=== PATIENT | female | born 1955 | race Caucasian/White ===

== ENCOUNTER → 2018-07-06 | Day surgery (SDC) | payer MEDICARE ==
[~2018-07-06] VITALS: Ht 165.1 cm; Wt 148.0 kg
[~2018-07-06] MED LIST: DIGOXIN; METOPROLOL; RIVAROXABAN; SPIR100T4 PO
[2018-07-06 10:49] VITALS: Ht 165.1 cm; Wt 148.0 kg
[2018-07-06 11:13] VITALS: BP 121/83; PULSE 100; RESP 18
== END | disposition home or self-care (01) ==
LOC: GIL 09:44
PROVIDERS: ATTEND Internal Medicine Gastroenterology
DX: R10.9 Unspecified abdominal pain (principal); Z53.8 Procedure and treatment not carried out for other reasons; I48.91 Unspecified atrial fibrillation

== ENCOUNTER 2018-07-20 08:22 | Day surgery (SDC) | payer MEDICARE ==
[~2018-07-20] VITALS: Ht 160 cm; Wt 67.3 kg
[2018-07-20 08:59] VITALS: Ht 160 cm; Wt 67.3 kg
[2018-07-20 09:06] VITALS: BP 128/82; PULSE 95; RESP 16
[2018-07-20 09:16] VITALS: BP 118/84; PULSE 97; RESP 20
--- NOTE | 2018-07-20 10:10 | GILP ---
DATE OF PROCEDURE: 07/20/2018 PROCEDURE PERFORMED: Removal of the G-tube. INDICATION: A 63-year-old female undergoing this procedure for the removal of the G-tube as per the , the patient is eating 100% and does not want G-tube. The risk of the procedure, related and unrelated complication all explained and informed consent was obtained. DESCRIPTION OF PROCEDURE: The patient was brought to the GI lab, placed on the gurney after obtainin g consent. As per the complete instruction, by traction, the G-tube was removed. The area was thoro ughly cleaned with normal saline. The patient tolerated the procedure very well. IMPRESSION: Successful removal of the G-tube. PLAN: Resume feeding through the mouth, cleaned the area with soap and water and if the fistula does not get closed they should contact my office. Dictated By: DEJON STARKEY/NTS Conf#: [id number] DID#: [id number] CC: DAYNA GOLDSTEIN MD; DEJON RESENDIZ MD;*EndCC*
== END 2018-07-20 09:53 | disposition home or self-care (01) ==
LOC: GIL 08:22
PROVIDERS: ATTEND Internal Medicine Gastroenterology
DX: Z43.1 Encounter for attention to gastrostomy (principal)
CPT/HCPCS: 99211

== ENCOUNTER 2018-11-16 07:29 | Inpatient (IN) | payer MEDICARE, BC ==
[~2018-11-16] VITALS: Ht 162.6 cm; Wt 58.0 kg
[~2018-11-16 07:29] MED LIST changes: +ATOR20TA38 PO; +LEVO500T48 PO; +METO-429 PO; +PANT40TA4 PO; +RIVA20TA5 PO; +SPIR25TA PO
[2018-11-16] MEDS ORDERED: morphine 4 MG/ML VIAL IV STA (07:45)
[2018-11-16] MEDS ORDERED: ONDANSETRON 4 MG INJ IV STA (07:45)
[2018-11-16] MEDS ORDERED: SODIUM CHLORIDE 0.9% 1L BAG IV* STA (07:45)
[2018-11-16] MEDS ORDERED: METOPROLOL 5 MG INJ IV ONE (08:00)
[2018-11-16] MEDS: CEFTRIAXONE 1 GM/50 ML (PMX) 50 ML IVPB ONE ×2 (08:08→08:40)
--- NOTE | 2018-11-16 09:58 | ERD ---
ER Documentation Chief Complaint Chief Complaint abdominal pain & vomitting since thursday & shaking HPI Patient is a 63-year-old female with coronary disease, stroke, hypertension, and atrial fibrillation who presents with vomiting and left-sided flank pain. She also has shortness of breath. Her symptoms started on Thursday night. She said the pain is been constant and sharp in nature. She has had sweats. She has had no treatment as of yet. Upon review of old medical record the patient had one previous visit to the ER in 2012. The patient's primary doctor is Dr. Colin. ROS All systems reviewed and are negative except as per history of present illness. Medications Home Meds Reported Medications Rivaroxaban* (Xarelto*) 20 Mg Tablet, 20 MG PO WITH DINNER, TAB 11/16/18 Metoprolol Tartrate* (Lopressor*) 50 Mg Tab, 50 MG PO BID, #60 TAB 11/16/18 Atorvastatin Calcium* (Atorvastatin Calcium*) 20 Mg Tablet, 20 MG PO QHS, #30 TA B 11/16/18 Spironolactone* (Aldactone*) 25 Mg Tablet, 25 MG PO DAILY, #30 TAB 11/16/18 Discontinued Reported Medications [Xarelto Daily] No Conflict Check 07/06/18 Spironolactone* (Spironolactone*) 100 Mg Tablet, 100 MG PO DAILY, TAB 07/06/18 [Metoprolol] No Conflict Check 07/06/18 [Digoxin] No Conflict Check 07/06/18 Allergies Allergies: Uncoded Allergies: CONTRAST (Allergy, Unknown, 07/06/18) PMhx/Soc History of Surgery: No Anesthesia Reaction: No Hx Neurological Disorder: Yes (STROKE) Hx Respiratory Disorders: Yes (HX OF COLLAPSED LUNG) Hx Cardiac Disorders: Yes (HTN, AFIB) Hx Psychiatric Problems: Yes (ANXIETY) Hx Miscellaneous Medical Probl: No Hx Alcohol Use: No Hx Substance Use: No Hx Tobacco Use: Yes Smoking Status: Former smoker FmHx Family History: No diabetes Physical Exam Vitals Vital Signs Date Temp Pulse Resp B/P (MAP) Pulse Ox O2 O2 Flow FiO2 Time Delivery Rate 11/16/18 104 20 137/105 97 Nasal 2.0 08:30 (116) Cannula 11/16/18 109 14 119/95 100 Nasal 2.0 08:21 (103) Cannula 11/16/18 Nasal 2 08:04 Cannula 11/16/18 97.5 77 18 149/101 99 07:30 (117) Physical Exam Const: Moderate distress Head: Atraumatic Eyes: Normal Conjunctiva ENT: Normal External Ears, Nose and Mouth. Neck: Full range of motion. No meningismus. Resp: Clear to auscultation bilaterally Cardio: Tachycardic rate with a regular rhythm Abd: Soft, non tender, non distended. Normal bowel sounds Skin: No petechiae or rashes Back: No midline or flank tenderness Ext: No cyanosis, or edema Neur: Awake and alert Psych: Normal Mood and Affect Result Diagram: 11/16/18 0750 11/16/18 0750 Results 24 hrs Laboratory Tests Test 11/16/18 07:50 11/16/18 08:01 11/16/18 08:37 White Blood Count 13.5 10^3/ul Red Blood Count 5.87 10^6/ul Hemoglobin 15.3 g/dl Hematocrit 48.7 % Mean Corpuscular Volume 83.0 fl Mean Corpuscular Hemoglobin 26.1 pg Mean Corpuscular 31.4 g/dl Hemoglobin Concent Red Cell Distribution Width 16.6 % Platelet Count 371 10^3/UL Mean Platelet Volume 11.1 fl Immature Granulocytes % 0.500 % Neutrophils % 81.3 % Lymphocytes % 14.8 % Monocytes % 3.0 % Eosinophils % 0.1 % Basophils % 0.3 % Nucleated Red Blood Cells % 0.0 /100WBC Immature Granulocytes # 0.070 10^3/ul Neutrophils # 11.0 10^3/ul Lymphocytes # 2.0 10^3/ul Monocytes # 0.4 10^3/ul Eosinophils # 0.0 10^3/ul Basophils # 0.0 10^3/ul Nucleated Red Blood Cells # 0.0 10^3/ul Prothrombin Time 22.7 Sec Prothrombin Time Ratio 1.8 INR International 1.99 Normalized Ratio Activated Partial Thromboplast 35.7 Sec Time Sodium Level 141 mmol/L Potassium Level 4.4 mmol/L Chloride Level 104 mmol/L Carbon Dioxide Level 24 mmol/L Anion Gap 13 Blood Urea Nitrogen 22 mg/dl Creatinine 1.16 mg/dl Est Glomerular Filtrat 47 mL/min Rate mL/min Glucose Level 147 mg/dl Calcium Level 10.8 mg/dl Total Bilirubin 0.5 mg/dl Direct Bilirubin 0.00 mg/dl Indirect Bilirubin 0.5 mg/dl Aspartate Amino 21 IU/L Transf (AST/SGOT) Alanine 18 IU/L Aminotransferase (ALT/SGPT) Alkaline Phosphatase 78 IU/L Troponin I < 0.012 ng/ml Total Protein 8.1 g/dl Albumin 4.2 g/dl Globulin 3.90 g/dl Albumin/Globulin Ratio 1.07 POC Venous Lactate 3.2 mmol/L Urine Color IRINA Urine Clarity CLOUDY Urine pH 5.0 Urine Specific [place] 1.023 Urine Ketones TRACE mg/dL Urine Nitrite NEGATIVE mg/dL Urine Bilirubin NEGATIVE mg/dL Urine Urobilinogen NEGATIVE mg/dL Urine Leukocyte Esterase TRACE Lor/ul Urine Microscopic RBC 3 /HPF Urine Microscopic WBC 34 /HPF Urine Squamous Epithelial Cells FEW /HPF Urine Bacteria MANY /HPF Urine Mucus MANY /HPF Urine Hemoglobin NEGATIVE mg/dL Urine Glucose NEGATIVE mg/dL Urine Total Protein 3+ mg/dl Current Medications Medications Dose Sig/Kenneth Start Time Status Last (Trade) Ordered Route PRN Stop Time Admin Dose Reason Admin Sodium 1,840 ml BOLUS OVER 2 11/16/18 DC 11/16/18 Chloride HOURS STAT 07:45 08:09 (NS) IV* 11/16/18 07:47 Morphine 4 mg ONCE STAT 11/16/18 DC 11/16/18 Sulfate IV 07:45 08:09 (morphine) 11/16/18 07:47 Ondansetron 4 mg ONCE STAT 11/16/18 DC 11/16/18 HCl (Zofran IV 07:45 08:09 Inj) 11/16/18 07:47 Metoprolol 5 mg ONCE ONCE 11/16/18 DC 11/16/18 Tartrate IV 08:00 08:17 (Lopressor) 11/16/18 08:01 Ceftriaxone 50 ml @ ONCE ONCE 11/16/18 DC 11/16/18 Sodium 100 mls/hr IVPB 08:30 08:40 11/16/18 08:59 Ondansetron 4 mg ER BRIDGE 11/16/18 HCl (Zofran PRN IV 10:00 Inj) NAUSEA/VOMITI 11/17/18 09:59 NG 650 mg ER BRIDGE 11/16/18 Acetaminophen PRN PO 10:00 (Tylenol .MILD PAIN 11/17/18 09:59 Tab) 1-3 OR TEMP Procedures/MDM EKG read by me: Rate/Rhythm: Rapid atrial fibrillation Intervals: Normal Impression: Rapid atrial fibrillation without ischemia Chest x-ray read by radiology. CT abdomen pelvis read by radiology. Sepsis Documentation: Patient's infectious symptoms have not stabilized and the patient is at risk of rapid decompensation. The patient will be admitted for careful hydration, antibiotic therapy, and infectious source control. SEVERE SEPSIS CRITERIA: Infectious source: Pyelonephritis End organ damage indicated by: Lactic acid greater than 2 SEPSIS MANAGEMENT Time of recognition of sepsis: 800. Time of recognition of severe sepsis: 800. Time of recognition of septic shock: No septic shock at this time. 3 HOUR BUNDLE Blood cultures x 2 before broad-spectrum antibiotics: Yes 30 ml/kg NS bolus completed Initial lactate 3.2 Repeat lactate pending SEPTIC SHOCK ASSESSMENT: No lactic acid > 4.0 No persistent hypotension (SBP < 90 or 40 mmHg drop, MAP < 65) despite 30 mL/kg IV fluid bolus VOLUME REASSESSMENT FOR SEPTIC SHOCK: No septic shock at this time PERSISTENT HYPOTENSION TREATMENT: Comfort care no Central line not Required Vasopressor started not required I considered further perfusion assessment with CVP measurement, SCVO2, bedside ultrasound volume assessment, passive leg raise, trial of further fluid bolus. And proceeded with 30 ml/kg fluid bolus of NSS, broad spectrum antibiotics, and admission. The patient will be admitted to the care of Dr. Colin her primary doctor. She will be admitted to a telemetry bed she did have rapid atrial fibrillation requiring IV metoprolol. CRITICAL CARE Critical care time 35 minutes Emergent fluid management while maintaining close respiratory support. Provision of immediate and broad-spectrum antibiotic therapy. Simultaneous assessment for possible sources in order to direct targeted therapy. Consideration for invasive and chemical support to prevent cardiopulmonary collapse. Critical care time is independent of procedures performed. Departure Diagnosis: Primary Impression: Severe sepsis Additional Impressions: Pyelonephritis Abdominal pain Abdominal location: unspecified location Qualified Codes: R10.9 - Unspecified abdominal pain Condition: MARTHA Horowitz MD Nov 16, 2018 09:58
[2018-11-16] MEDS ORDERED: ACETAMINOPHEN 325 MG TAB PO PRN ×2 (10:00→11:00)
[2018-11-16] MEDS ORDERED: ONDANSETRON 4 MG INJ IV PRN (10:00)
[2018-11-16] MEDS ORDERED: DOCUSATE SODIUM 100 MG CAP PO PRN (11:00)
[2018-11-16] MEDS ORDERED: LORAZEPAM 0.5 MG TAB PO PRN (11:00)
[2018-11-16] MEDS ORDERED: HYDROCODONE/APAP (5/325) TAB PO PRN (11:00)
[2018-11-16] MEDS ORDERED: NACL 0.9% 3 ML SYG IV SCH (11:00)
[2018-11-16] MEDS ORDERED: MAGNESIUM HYDROXIDE 30ML CUP PO PRN (11:00)
--- NOTE | 2018-11-16 11:37 | CONS ---
Assessment/Plan Assessment/Plan Hospital Course (Demo Recall) 1. A. fib with RVR: Heart rate probably increased secondary to below 2. Possible sepsis and UTI 3. History of hypertension 4. History of CVA x2 5. Dyslipidemia 6. Nausea vomiting dehydration Recommendations: Patient will be evaluated for GI. If no procedure is planned continue with the Xarelto Continue the p.o. beta-joelle. We will also add Cardizem IV as needed to control the heart rate Antibiotics management as per internal medicine. We will monitor closely and telemetry Continue with a statin to keep LDL level less than 70 given her history of CVA Thank you for his referral. We will continue to follow along with you MARY CASTILLO MD [facility] Consultation Date/Type/Reason Admit Date/Time Date of Consultation: Nov 16, 2018 Type of Consult Cardiology Reason for Consultation AFIB RVR Requesting Provider: DAYNA GOLDSTEIN MD Date/Time of Note DATE: 11/16/18 TIME: 11:33 Hx of Present Illness Interventional cardiology consultation note Chief complaint: Nausea vomiting left flank pain Reason for consult: A. fib with RVR History of present illness: Thank you for this referral. History was from the patient discussion with Dr. Goldstein discussion with the ER physician review of the chart. This is a pleasant 63-year-old female with history of CVA x2 chronic atrial fib rillation on Xarelto who came to emergency room because of 3 to 4 days of left flank pain. Patient also had nausea vomiting unable to eat. He denies any chest pain or pressure to me denies any bleeding to me denies any dysuria or hematuria to me. She was noted to be in atrial fibrillation rapid ve ntricular response in the ER. Has been given IV beta-joelle and heart rate is currently better controlled. Allergies: Contrast Medications were reviewed as per medical reconciliation sheet Family history: No history of early coronary artery disease Social history: Non-smoker. Her primary care physician Dr. Goldstein Past medical history: CVA x2 atrial fibrillation hypertension dyslipidemia Review of system: Patient denies all others except for above-mentioned Past Medical History Home Meds Reported Medications Rivaroxaban* (Xarelto*) 20 Mg Tablet, 20 MG PO WITH DINNER, TAB 11/16/18 Metoprolol Tartrate* (Lopressor*) 50 Mg Tab, 50 MG PO BID, #60 TAB 11/16/18 Atorvastatin Calcium* (Atorvastatin Calcium*) 20 Mg Tablet, 20 MG PO QHS, #30 TAB 11/16/18 Spironolactone* (Aldactone*) 25 Mg Tablet, 25 MG PO DAILY, #30 TAB 11/16/18 Discontinued Reported Medications [Xarelto Daily] No Conflict Check 07/06/18 Spironolactone* (Spironolactone*) 100 Mg Tablet, 100 MG PO DAILY, TAB 07/06/18 [Metoprolol] No Conflict Check 07/06/18 [Digoxin] No Conflict Check 07/06/18 Medications Current Medications Ondansetron HCl (Zofran Inj) 4 mg ER BRIDGE PRN IV NAUSEA/VOMITING; Start 11/16/18 at 10:00; Stop 11/17/18 at 09:59 Acetaminophen (Tylenol Tab) 650 mg ER BRIDGE PRN PO .MILD PAIN 1-3 OR TEMP; Start 11/16/18 at 10:00; Stop 11/17/18 at 09:59 Sodium Chloride 1,000 ml @ 60 mls/hr [id number] IV ; Start 11/16/18 at 10:43 IV Flush (NS 3 ml) 3 ml PER PROTOCOL IV ; Start 11/16/18 at 11:00 Lorazepam (Ativan) 0.5 mg Q8H PRN PO .ANXIETY; Start 11/16/18 at 11:00 Ondansetron HCl (Zofran Inj) 4 mg Q6H PRN IV NAUSEA/VOMITING; Start 11/16/18 at 11:00 Acetaminophen (Tylenol Tab) 650 mg Q6H PRN PO .PAIN 1-3 OR TEMP; Start 11/16/18 at 11:00 Acetaminophen/ Hydrocodone Bitart ([place] (5/325)) 1 tab Q6H PRN PO .PAIN 4-6; Start 11/16/18 at 11:00 Morphine Sulfate (morphine) 2 mg Q4H PRN IV .PAIN 7-10; Start 11/16/18 at 11:00 Docusate Sodium (Colace) 100 mg Q12H PRN PO .CONSTIPATION; Start 11/16/18 at 11:00 Magnesium Hydroxide (Milk Of Mag) 30 ml DAILY PRN PO .CONSTIPATION; Start 11/16/18 at 11:00 Pantoprazole (Protonix Tab) 40 mg DAILY@06 PO ; Start 11/17/18 at 06:00 Ceftriaxone Sodium 50 ml @ 100 mls/hr Q24H IVPB ; Start 11/17/18 at 09:00 Atorvastatin Calcium (Lipitor) 20 mg QHS PO ; Start 11/16/18 at 21:00 Metoprolol Tartrate (Lopressor) 50 mg BID PO ; Start 11/16/18 at 21:00 Rivaroxaban (Xarelto) 20 mg WITH DINNER PO ; Start 11/16/18 at 18:00 Allergies: Uncoded Allergies: CONTRAST (Allergy, Unknown, 07/06/18) Social History Smoking Status: Former smoker Exam/Review of Systems Vital Signs Vitals Vital Signs Date Temp Pulse Resp B/P (MAP) Pulse Ox O2 O2 Flow FiO2 Time Delivery Rate 11/16/18 104 20 137/105 97 Nasal 2.0 08:30 (116) Cannula 11/16/18 97.5 07:30 Exam Exam General: no acute distress HEENT: NC/AT. pupils are equal. round. NECK: NO JVD. no stridor. CV: Regularly regular. systolic murmur; no gallop or rubs. PULM: no wheezing or rhonchi. GI: SOFT, NT, ND, no rebound or guarding Extremity: trace B/L LE edema. no clubbing. neuro: awake and alert, OX3. Psych: calm and pleasant rectal: deferred EKG was personally reviewed atrial fibrillation rapid ventricular response Echocardiogram was personally showed normal systolic function CT of the abdomen shows: 1. Moderately distended fluid-filled stomach with questioned thickening of the distal stomach. Consider upper GI or direct visualization. 2. Small to moderate hiatal hernia with retained fluid. 3. Diffuse decreased caliber of the transverse and descending colon which may reflect peristalsis. Findings may also reflect colitis in the appropriate clinical setting. 4. Interval removal of a percutaneous gastrostomy tube. 5. Stable sclerotic lesion in the left iliac bone at the sacroiliac joint level. Labs Result Diagram: 11/16/18 0750 11/16/18 0750 Results 24hrs Laboratory Tests Test 11/16/18 07:50 11/16/18 08:01 11/16/18 08:37 11/16/18 09:43 White Blood Count 13.5 H Red Blood Count 5.87 H Hemoglobin 15.3 Hematocrit 48.7 H Mean Corpuscular 83.0 Volume Mean Corpuscular 26.1 L Hemoglobin Mean Corpuscular 31.4 L Hemoglobin Concent Red Cell 16.6 H Distribution Width Platelet Count 371 Mean Platelet Volume 11.1 H Immature 0.500 H Granulocytes % Neutrophils % 81.3 H Lymphocytes % 14.8 L Monocytes % 3.0 Eosinophils % 0.1 Basophils % 0.3 Nucleated Red Blood 0.0 Cells % Immature 0.070 H Granulocytes # Neutrophils # 11.0 H Lymphocytes # 2.0 Monocytes # 0.4 Eosinophils # 0.0 Basophils # 0.0 Nucleated Red Blood 0.0 Cells # Prothrombin Time 22.7 H Prothrombin Time 1.8 Ratio INR International 1.99 Normalized Ratio Activated 35.7 H Partial Thromboplast Time Sodium Level 141 Potassium Level 4.4 Chloride Level 104 Carbon Dioxide Level 24 Anion Gap 13 Blood Urea Nitrogen 22 H Creatinine 1.16 H Est Glomerular 47 L Filtrat Rate mL/min Glucose Level 147 Calcium Level 10.8 H Total Bilirubin 0.5 Direct Bilirubin 0.00 Indirect Bilirubin 0.5 Aspartate Amino 21 Transf (AST/SGOT) Alanine 18 Aminotransferase (AL T/SGPT) Alkaline Phosphatase 78 Troponin I < 0.012 Total Protein 8.1 Albumin 4.2 Globulin 3.90 H Albumin/Globulin 1.07 Ratio POC Venous Lactate 3.2 *H Urine Color IRINA Urine Clarity CLOUDY A Urine pH 5.0 Urine Specific 1.023 [place] Urine Ketones TRACE A Urine Nitrite NEGATIVE Urine Bilirubin NEGATIVE Urine Urobilinogen NEGATIVE Urine Leukocyte TRACE A Esterase Urine Microscopic 3 RBC Urine Microscopic 34 H WBC Urine Squamous FEW Epithelial Cells Urine Bacteria MANY A Urine Mucus MANY A Urine Hemoglobin NEGATIVE Urine Glucose NEGATIVE Urine Total Protein 3+ H Lactic Acid Level 1.9 Medications Medications Current Medications Ondansetron HCl (Zofran Inj) 4 mg ER BRIDGE PRN IV NAUSEA/VOMITING; Start 11/16/18 at 10:00; Stop 11/17/18 at 09:59 Acetaminophen (Tylenol Tab) 650 mg ER BRIDGE PRN PO .MILD PAIN 1-3 OR TEMP; Start 11/16/18 at 10:00; Stop 11/17/18 at 09:59 Sodium Chloride 1,000 ml @ 60 mls/hr [id number] IV ; Start 11/16/18 at 10:43 IV Flush (NS 3 ml) 3 ml PER PROTOCOL IV ; Start 11/16/18 at 11:00 Lorazepam (Ativan) 0.5 mg Q8H PRN PO .ANXIETY; Start 11/16/18 at 11:00 Ondansetron HCl (Zofran Inj) 4 mg Q6H PRN IV NAUSEA/VOMITING; Start 11/16/18 at 11:00 Acetaminophen (Tylenol Tab) 650 mg Q6H PRN PO .PAIN 1-3 OR TEMP; Start 11/16/18 at 11:00 Acetaminophen/ Hydrocodone Bitart ([place] (5/325)) 1 tab Q6H PRN PO .PAIN 4-6; Start 11/16/18 at 11:00 Morphine Sulfate (morphine) 2 mg Q4H PRN IV .PAIN 7-10; Start 11/16/18 at 11:00 Docusate Sodium (Colace) 100 mg Q12H PRN PO .CONSTIPATION; Start 11/16/18 at 11:00 Magnesium Hydroxide (Milk Of Mag) 30 ml DAILY PRN PO .CONSTIPATION; Start 11/16/18 at 11:00 Pantoprazole (Protonix Tab) 40 mg DAILY@06 PO ; Start 11/17/18 at 06:00 Ceftriaxone Sodium 50 ml @ 100 mls/hr Q24H IVPB ; Start 11/17/18 at 09:00 Atorvastatin Calcium (Lipitor) 20 mg QHS PO ; Start 11/16/18 at 21:00 Metoprolol Tartrate (Lopressor) 50 mg BID PO ; Start 11/16/18 at 21:00 Rivaroxaban (Xarelto) 20 mg WITH DINNER PO ; Start 11/16/18 at 18:00 MARY CASTILLO MD Nov 16, 2018 11:37
[2018-11-16] MEDS ORDERED: DILTIAZEM 25 MG INJ IV PRN (12:00)
[2018-11-16] MEDS: morphine 2 MG INJ IV PRN ×2 (13:12→23:38)
--- NOTE | 2018-11-16 13:39 | RADRPT ---
Echocardiogram Report Patient Name: MEREDITH ANTONIOPatient ID: [id number] : [id number] (63y 10m)Study Date: 11/16/2018 10:57:43 AM Gender: FAccession #: [id number] Tech: Mildred Nolan RDCS Location: [facility] Ref.Physician: MARY TORRES Height(Cm): BSA: Weight(Kg): Quality: AdequateAccount #: [id number] Procedures: Echocardiographic Report: Transthoracic echocardiogram with complete 2D, M-Mode, and doppler examination. Indications: Atrial Fibrillation. Measurements: 2D/M Mode Doppler Measurement Value Normal Range Measurement Value Normal Range LVIDd 2D 3.4 [ 3.8 - 5.2 ] cm AV Peak Vitor 1.2 [ 100.0 - 170.0 ] cm/sec LVIDs 2D 2.1 [ 2.2 - 3.5 ] cm AV Peak PG 6.0 [ 2.0 - 9.0 ] mmHg LVPWd 2D 1.0 [ 0.6 - 0.9 ] cm LVOT Peak Vitor 0.6 [ 70.0 - 110.0 ] cm/sec IVSd 2D 1.2 [ 0.6 - 0.9 ] cm LVOT Peak PG 2.0 [ 2.0 - 6.0 ] mmHg AoR Diam 2D 2.6 [ 2.3 - 3.1 ] cm MV E Peak Vitor 0.9 [ 60.0 - 130.0 ] cm/sec EDV 2D 47.1 [ 46.0 - 106.0 ] ml MV Decel Time 63 [ 104 - 258 ] msec ESV 2D 14.8 [ 14.0 - 42.0 ] ml TR Peak Vitor 2.2 [ 100.0 - 280.0 ] cm/sec EF 2D 68.6 [ 54.0 - 74.0 ] percent TR Peak PG 20.0 mmHg LA Dimen 2D 3.1 [ 2.7 - 3.8 ] cm RVSP 30.0 [ 10.0 - 36.0 ] mmHg RA Pressure 10.0 mmHg Findings: Left Ventricle: Normal left ventricular systolic function. Normal left ventricular cavity size. Mild concentric left ventricular hypertrophy. Ejection fraction is visually estimated at 65 %. Tissue Doppler/Mitral Doppler indices are indeterminate in this study due to the presence of atrial fibrillation. Right Ventricle: Normal right ventricular size. Normal right ventricular systolic function. Left Atrium: The left atrium is normal in size. Right Atrium: The right atrium is normal in size. Mitral Valve: Mitral valve leaflets appear mildly thickened. Mild mitral annular calcification. Mild mitral valve regurgitation. The regurgitation jet is eccentrically directed which may underestimate the severity of mitral regurgitation. Aortic Valve: No significant aortic stenosis or insufficiency. Aortic cusps appear mildly calcified. Tricuspid Valve: Normal appearance and function of the tricuspid valve with trace physiologic regurgitation. Normal right ventricular systolic pressure. Pulmonic Valve: Pulmonic valve not well visualized. Pericardium: Normal pericardium with no significant pericardial effusion. Aorta: Normal aortic root. IVC: Normal size and normal respiratory collapse consistent with normal right atrial pressure. Conclusions: Normal left ventricular systolic function. Normal left ventricular cavity size. Mild concentric left ventricular hypertrophy. Ejection fraction is visually estimated at 65 %. Tissue Doppler/Mitral Doppler indices are indeterminate in this study due to the presence of atrial fibrillation. The left atrium is normal in size. Mitral valve leaflets appear mildly thickened. Mild mitral annular calcification. Mild mitral valve regurgitation. The regurgitation jet is eccentrically directed which may underestimate the severity of mitral regurgitation. No significant aortic stenosis or insufficiency. Aortic cusps appear mildly calcified. Normal appearance and function of the tricuspid valve with trace physiologic regurgitation. Normal right ventricular systolic pressure. Electronically Signed By: Mary Torres 2018-11-16 11:28:18 PDT
[2018-11-16] MEDS: ONDANSETRON 4 MG INJ IV PRN ×2 (14:27→23:43)
[2018-11-16] MEDS: SOD CHLORIDE 0.9% 1,000 ML IV SCH (14:28)
[2018-11-16 14:36] VITALS: BP 142/93; PULSE 109; RESP 18; Ht 162.6 cm; Wt 58.0 kg
[2018-11-16 15:02] VITALS: BP 131/93; PULSE 107; RESP 18
--- NOTE | 2018-11-16 15:35 | HP ---
DATE OF ADMISSION: 11/16/2018 REASON FOR ADMISSION: Sepsis, rule out UTI, rule out colitis, atrial fibrillation with RVR and left flank pain. HISTORY OF PRESENT ILLNESS: The patient is a 63-year-old female with history of CVA x2, hy pertension, dyslipidemia, history of dysphagia, status post brief placement of G-tube which was remov ed soon thereafter as patient was doing well. She does walk with a walker. Her PCP is Dr. Jaquan fischer. The patient was in usual state of health up until 4 days prior to admission when she reported ep isodes of left flank pain, nausea and vomiting. She was complaining of sweating, but denies fever. The patient continued to have symptoms, she decided to go the emergency department. In the ER, patient was evaluated. Initial vital signs showed a temperature of 97.5, pulse was 77, bu t went up to 109, respirations 18, blood pressure 149/11, saturation 99%. The patient was noted to b e in atrial AFib with RVR. The patient's laboratory workup revealed leukocytosis with a white count o f 13.5. Lactic acid of 3.2, BUN and creatinine of 22/1.16 suggestive of sepsis. Patient received ag gressive hydration and Rocephin was started as she had trace leukocyte esterase and WBC of 34 with ma ny bacteria suggestive that the symptoms may be due to pyelonephritis. She did undergo a CT scan of the abdomen and pelvis which showed moderately distended fluid-filled stomach with question thickenin g of the distal stomach. Continue upper GI with direct visualization, small to moderate hiatal herni a with retained fluid. There is diffuse decreased caliber of the transverse and descending colon whi ch may reflect peristalsis. Finding may also reflect colitis in the appropriate clinical setting. T here is interval removal of percutaneous G-tube with stable sclerotic lesion in the left iliac bone a nd sacroiliac joint level. Patient was stabilized and she received 5 mg of Lopressor IV, morphine, Z ofran and Tylenol. Rocephin again, was given for possible pyelonephritis. Patient to be admitted to telemetry unit in guarded condition. Upon evaluation, the patient's main complaint is left flank pa in. Denies any bloody stools. Denies diarrhea, denies any hematemesis, denies any chest pain or srinivasan rtness of breath. The patient will need further care. CVA x2 which initially affected her right sesar e, but patient is be able to walk with a walker. PAST MEDICAL HISTORY: Includes atrial fibrillation, hypertension, dyslipidemia, ASCVD, questionable coronary artery disease. ALLERGIES: CONTRAST DYE. SOCIAL HISTORY: Patient is . She has 2 kids. Her name is Ge Krause just tried to ca ll him and left a message. Tobacco: She stopped 15 years ago. She is a former smoker. Alcohol, IV drug abuse denies. SURGICAL HISTORY: Just G-tube placement. The patient cannot recall having a colonoscopy but again sh nhi had recently a G-tube placed. MEDICATIONS: Patient's home medications include: 1. Xarelto 20 mg with dinner. 2. Atorvastatin 20 mg at bedtime. 3. Lopressor 50 b.i.d. 4. Aldactone 25 mg daily. FAMILY HISTORY: Unknown. PHYSICAL EXAMINATION: VITAL SIGNS: Temperature 97.5, pulse 104, respirations 20, blood pressure is 137/105, saturation 97% on 2 liters. GENERAL: The patient is in no acute distress, slightly anxious due to nasal cannula in place. CARDIOVASCULAR: S1, S2, Irregularly irregular. LUNGS: Clear. ABDOMEN: Soft, nontender. Overall, she does have left flank posterior back pain. SKIN: There are no rashes or shingles noted. EXTREMITIES: No clubbing, cyanosis, or edema. Strength appears intact bilateral upper and lower ext remities. LABORATORY DATA: Sodium 141, potassium 4.4, chloride 104, bicarbonate 24, BUN is 22, creatinine 1.16 , glucose 147. Lactic acid 1.9. Venous lactic acid was 3.2. The patient's total bilirubin 0.5, AST 21, ALT ____, alkaline phosphatase 78. Troponin was negative. Albumin 4.2. White count 13.5, hemo globin 15.3, hematocrit 49, platelets 371, neutrophils 81. INR 1.99. This patient takes Xarelto. U rinalysis shows trace leukocyte esterase. Blood cultures and urine cultures were taken in the emerge ncy department and aggressive hydration was given. IMAGING TESTS: Chest x-ray shows 3 cm perihilar mass again noted. EKG: Showed atrial fibrillation with RVR at 127 beats a minute, low voltage precordial leads. ASSESSMENT AND PLAN: This is a 63-year-old female with history of atrial fibrillation, cer ebrovascular accident, hypertension, dyslipidemia who presented with 4 days of worsening left flank p ain, was found to have a possible pyelonephritis, nausea, vomiting, other significant findings includ e a thickened distal stomach, left hilar mass, questionable changes in the colon which may suggest co litis. 1. Respiratory: Noted above findings on the CAT scan. We discussed this with the may proce ed with a CT scan of the chest to evaluate left perihilar mass. 2. Oxygen support will be provided. 3. Cardiovascular: The patient with atrial fibrillation with rapid ventricular response. Patient w ill place on beta blockers and continue anticoagulation with Xarelto. 4. We will consult cardiology and obtain 2D echo. Check lipid panel as well. May resume patient's statin. 5. Gastrointestinal: The patient with left flank pain, noted above findings on the CT scan. We nader l consult gastroenterology for further recommendation. Patient will be placed on Protonix for gastro intestinal prophylaxis. We will check cancer markers. 6. Infectious disease: The patient with evidence of urinary tract infection. Patient was placed o n antibiotics as per history from Dr. Tran on his history and physical dated July 05, There is m lorraine the patient has a history of Clostridium difficile, check stool for C. diff as well. 7. Advance diet slowly as tolerated. Will start with clear liquid diet in the setting of nausea and vomiting. Antiemetics will be provided. 8. Further history will be obtained from the . We will follow closely in the telemetry unit. Dictated By: DAYNA ELLIOTT/MITCH Conf#: [id number] DID#: [id number]
[2018-11-16] MEDS ORDERED: RIVAROXABAN 20 MG TABLET PO SCH (17:55)
[2018-11-16 20:00] VITALS: BP 110/79; PULSE 113; RESP 19
[2018-11-16] MEDS: METOPROLOL 50 MG TAB PO SCH (20:43)
[2018-11-16] MEDS ORDERED: ATORVASTATIN 20 MG TAB PO SCH (21:00)
[2018-11-16 23:24] VITALS: BP 124/87; PULSE 98; RESP 19
[2018-11-17 03:17] VITALS: BP 123/83; PULSE 103; RESP 19
[2018-11-17] MEDS: PANTOPRAZOLE (EC) 40 MG TAB PO SCH (05:33)
[2018-11-17] MEDS: SOD CHLORIDE 0.9% 1,000 ML IV SCH (05:35)
[2018-11-17 07:22] VITALS: BP 113/80; PULSE 71; RESP 17
[2018-11-17] MEDS: METOPROLOL 50 MG TAB PO SCH ×2 (08:35→21:26)
[2018-11-17] MEDS: CEFTRIAXONE 1 GM/50 ML (PMX) 50 ML IVPB SCH (08:35)
--- NOTE | 2018-11-17 08:57 | CONS ---
Consult Date/Type/Reason Admit Date/Time Nov 16, 2018 at 09:50 Initial Consult Date 11/16/18 Type of Consultation: cv Requesting Provider: DAYNA GOLDSTEIN MD Date/Time of Note DATE: 11/17/18 TIME: 08:53 Subjective Interventional cardiology follow-up progress note Subjective: Case discussed with the staff. Telemetry was reviewed. Patient has remained in atrial fibrillation but heart rate has remained stable. Patient denies any left-sided chest pain or pressure. Nausea vomiting is resolved now Objective: General: no acute distress HEENT: NC/AT. pupils are equal. round. NECK: NO JVD. no stridor. CV: Irregularly irregular. systolic murmur; no gallop or rubs. PULM: no wheezing or rhonchi. GI: SOFT, NT, ND, no rebound or guarding Extremity: trace B/L LE edema. no clubbing. neuro: awake and alert, OX3. Psych: calm and pleasant rectal: deferred EKG was personally reviewed atrial fibrillation rapid ventricular response Echocardiogram was personally showed normal systolic function CT of the abdomen shows: 1. Moderately distended fluid-filled stomach with questioned thickening of the distal stomach. Consider upper GI or direct visualization. 2. Small to moderate hiatal hernia with retained fluid. 3. Diffuse decreased caliber of the transverse and descending colon which may reflect peristalsis. Findings may also reflect colitis in the appropriate clinical setting. 4. Interval removal of a percutaneous gastrostomy tube. 5. Stable sclerotic lesion in the left iliac bone at the sacroiliac joint level. Objective Vitals Vital Signs Date Temp Pulse Resp B/P (MAP) Pulse Ox O2 O2 Flow FiO2 Time Delivery Rate 11/17/18 98.0 71 17 113/80 100 07:22 (91) 11/17/18 Nasal 03:17 Cannula 11/16/18 2.0 20:00 Results/Medications Result Diagram: 11/17/18 0532 11/17/18 0532 Results 24 hrs Laboratory Tests Test 11/16/18 09:43 11/16/18 14:10 11/17/18 05:32 Lactic Acid Level 1.9 1.8 White Blood Count 11.0 H Red Blood Count 4.43 # Hemoglobin 11.8 #L Hematocrit 37.6 # Mean Corpuscular Volume 84.9 Mean Corpuscular Hemoglobin 26.6 L Mean Corpuscular Hemoglobin Concent 31.4 L Red Cell Distribution Width 16.4 H Platelet Count 270 # Mean Platelet Volume 11.6 H Immature Granulocytes % 0.500 H Neutrophils % 65.7 Lymphocytes % 23.9 Monocytes % 8.4 Eosinophils % 1.1 Basophils % 0.4 Nucleated Red Blood Cells % 0.0 Immature Granulocytes # 0.060 H Neutrophils # 7.2 Lymphocytes # 2.6 Monocytes # 0.9 Eosinophils # 0.1 Basophils # 0.0 Nucleated Red Blood Cells # 0.0 Sodium Level 138 Potassium Level 3.8 Chloride Level 108 Carbon Dioxide Level 25 Anion Gap 5 # Blood Urea Nitrogen 20 Creatinine 0.86 Est Glomerular Filtrat Rate mL/min > 60 Glucose Level 78 # Hemoglobin A1c 5.0 Calcium Level 8.7 Magnesium Level 1.6 L Total Bilirubin 0.4 Direct Bilirubin 0.00 Indirect Bilirubin 0.4 Aspartate Amino Transf (AST/SGOT) 17 Alanine Aminotransferase (ALT/SGPT) 20 Alkaline Phosphatase 48 Total Protein 5.9 #L Albumin 2.9 #L Globulin 3.00 Albumin/Globulin Ratio 0.96 Triglycerides Level 107 Cholesterol Level 146 LDL Cholesterol, Calculated 95 HDL Cholesterol 30 L Cholesterol/HDL Ratio 4.8 Thyroid Stimulating Hormone (TSH) Pending Free Thyroxine 1.53 Home Meds Reported Medications Rivaroxaban* (Xarelto*) 20 Mg Tablet, 20 MG PO WITH DINNER, TAB 11/16/18 Metoprolol Tartrate* (Lopressor*) 50 Mg Tab, 50 MG PO BID, #60 TAB 11/16/18 Atorvastatin Calcium* (Atorvastatin Calcium*) 20 Mg Tablet, 20 MG PO QHS, #30 TAB 11/16/18 Spironolactone* (Aldactone*) 25 Mg Tablet, 25 MG PO DAILY, #30 TAB 11/16/18 Discontinued Reported Medications [Xarelto Daily] No Conflict Check 07/06/18 Spironolactone* (Spironolactone*) 100 Mg Tablet, 100 MG PO DAILY, TAB 07/06/18 [Metoprolol] No Conflict Check 07/06/18 [Digoxin] No Conflict Check 07/06/18 Medications Current Medications Sodium Chloride 1,000 ml @ 60 mls/hr [id number] IV Last administered on 11/17/18at 05:35; Admin Dose 60 MLS/HR; Start 11/16/18 at 10:43 IV Flush (NS 3 ml) 3 ml PER PROTOCOL IV ; Start 11/16/18 at 11:00 Lorazepam (Ativan) 0.5 mg Q8H PRN PO .ANXIETY; Start 11/16/18 at 11:00 Ondansetron HCl (Zofran Inj) 4 mg Q6H PRN IV NAUSEA/VOMITING Last administered on 11/16/18at 23:43; Admin Dose 4 MG; Start 11/16/18 at 11:00 Acetaminophen (Tylenol Tab) 650 mg Q6H PRN PO .PAIN 1-3 OR TEMP; Start 11/16/18 at 11:00 Acetaminophen/ Hydrocodone Bitart ([place] (5/325)) 1 tab Q6H PRN PO .PAIN 4-6; Start 11/16/18 at 11:00 Morphine Sulfate (morphine) 2 mg Q4H PRN IV .PAIN 7-10 Last administered on 11/16/18at 23:38; Admin Dose 2 MG; Start 11/16/18 at 11:00 Docusate Sodium (Colace) 100 mg Q12H PRN PO .CONSTIPATION; Start 11/16/18 at 11:00 Magnesium Hydroxide (Milk Of Mag) 30 ml DAILY PRN PO .CONSTIPATION; Start 11/16/18 at 11:00 Pantoprazole (Protonix Tab) 40 mg DAILY@06 PO Last administered on 11/17/18at 05:33; Admin Dose 40 MG; Start 11/17/18 at 06:00 Ceftriaxone Sodium 50 ml @ 100 mls/hr Q24H IVPB Last administered on 11/17/18at 08:35; Admin Dose 100 MLS/HR; Start 11/17/18 at 09:00 Atorvastatin Calcium (Lipitor) 20 mg QHS PO Last administered on 11/16/18at 20:42; Admin Dose 20 MG; Start 11/16/18 at 21:00 Metoprolol Tartrate (Lopressor) 50 mg BID PO Last administered on 11/17/18at 08:35; Admin Dose 50 MG; Start 11/16/18 at 21:00 Rivaroxaban (Xarelto) 20 mg WITH DINNER PO Last administered on 11/16/18at 17:20; Admin Dose 20 MG; Start 11/16/18 at 17:55 Diltiazem HCl (Cardizem Iv) 5 mg Q1H PRN IV hr > 120; Start 11/16/18 at 12:00 Assessment/Plan Hospital Course (Demo Recall) 1. A. fib with RVR: Heart rate probably increased secondary to below: currently better controlled 2. Possible sepsis and UTI 3. History of hypertension 4. History of CVA x2 5. Dyslipidemia 6. Nausea vomiting dehydration Recommendations: Patient will be evaluated by GI. If no procedure is planned, continue with the Xarelto Continue the p.o. beta-joelle. Cardizem IV as needed to control the heart rate Antibiotics management as per internal medicine. We will monitor closely and telemetry inc lipitor to 40 mg to keep LDL level less than 70 given her history of CVA Thank you for his referral. We will continue to follow along with you MARY CASTILLO MD [facility] MARY CASTILLO MD Nov 17, 2018 08:56
[2018-11-17] MEDS ORDERED: BARIUM SULFATE 135 ML (E-Z HD) PO ONE (10:12)
[2018-11-17 11:20] VITALS: BP 127/100; PULSE 86; RESP 17
[2018-11-17] MEDS ORDERED: MAGNESIUM SULFATE 2 GM/50 ML 50 ML IVPB ONE (11:30)
[2018-11-17 15:28] VITALS: BP 121/84; PULSE 80; RESP 18
--- NOTE | 2018-11-17 19:46 | PN ---
DATE: 11/17/2018 The patient seen, difficult to arouse, as she is sleeping, noted a note next to her bed stating the p atient does have difficulty swallowing and she has orthopnea, shortness of breath upon lying flat. T he patient again cannot provide currently, much history, but she has no complaints. Case discussed w [facility] nursing staff. I did review all the patient's imaging tests that were done so far. PHYSICAL EXAMINATION: VITAL SIGNS: Temperature 98, pulse 86, respirations 17, blood pressure 127/100, saturation 100% on 2 liters. GENERAL: The patient is in no acute distress. HEENT: Normocephalic, atraumatic. The patient is pale. CARDIOVASCULAR: S1 and S2. Irregularly irregular. LUNGS: Clear. ABDOMEN: Soft, nontender. EXTREMITIES: No clubbing, cyanosis, or edema. Left flank pain has resolved and no pain upon palpati on. LABORATORY DATA: White count improved to 11. Hemoglobin 9.8, hematocrit 38, platelet count of 270, neutrophils 66%, 24 %. Chemistry: Sodium 138, potassium 3.8, chloride 108, bicarbonate 25, BUN is 20, creatinine 0.6, glucose of 78. Hemoglobin A1c is 5. Total protein 5.9, albumin 2.9, cholest del 146, LDL of 95, HDL 30. TSH slightly low at 0.265 and free T4 is 1.53. Lactic acid normalized to 1.8. Urinalysis on admission did show trace leukocyte esterase, WBC 34. INR was high at 1.99, t he patient does take Xarelto. The patient's urine culture shows gram-negative rods greater than 100, 000. Awaiting identification and sensitivities. Blood cultures remain negative. Patient imaging tests, CT scan of the chest which I ordered shows diffuse circumferential wall thicke nicole of approximately 4.3 cm length segment of the mid to distal esophagus with surrounding fat stran ding as well as more focally along the right lateral aspect, where there is no mediastinum identified and esophageal tear or perforation is not entirely excluded and esophogram may be obtained for furth er evaluation if clinically warranted. Finding may reflect infectious inflammatory esophagitis; neop lastic involvement not excluded. Recommend followup endoscopy after the course of treatment and when clinically appropriate to exclude underlying mass; mass is approximately 3.7 cm mass. Grossly stabl e to the 05/11/2018. Chest CT with hemoglobin measured several pulmonary hamartoma, do advise short term followup chest CT with IV contrast show no avid enhancement to suggest carcinoid tumor. No tianna s endobronchial lesion on the current exam. Additional findings as above. Renal ultrasound shows ec hogenic kidneys, suspicious for medical renal disease, no evidence of hydronephrosis. A CAT scan, wh ich is also reviewed, please see report. There is moderately distended fluid-filled stomach with que stionable thickening of the distal stomach. Diffuse decreased caliber of transverse and descending c olon which may represent peristalsis, also may reflect colitis in the acute clinical setting, also st able sclerotic lesion in the left iliac bone. MEDICATIONS 1. Lipitor 40 mg at bedtime. 2. Rocephin 1 gram q.24 hours. 3. Protonix 40 mg daily. 4. Lopressor 50 mg b.i.d. 5. Xarelto 20 mg daily. 6. Cardizem as directed. 7. Ativan p.r.n. 8. Zofran p.r.n. 9. Tylenol p.r.n. 10. [place] p.r.n. 11. Morphine p.r.n. 12. ____ 13. Normal saline at 50 mL an hour. ASSESSMENT AND PLAN: A 63-year-old female with history of atrial fibrillation, CVA, hypert ension, dyslipidemia, presented with 4-day worsening left flank pain, was also found to have UTI, had episodes of nausea and vomiting. Imaging tests suggest esophageal thickening and questionable mass. 1. Respiratory. Due to the above findings on the CAT scan, we will consult pulmonary for further r ecommendations. May need just close followup with serial CAT scans. 2. Cardiovascular. The patient with atrial fibrillation. Cardiology is following. Echocardiogram which was done shows an ejection fraction of 65%, see report. Currently, no evidence of fluid overlo ad state. Remains anticoagulated with Xarelto, but if she is going to go for procedures such as endo scopy, may need to stop it. 3. Acute renal failure, resolved with hydration. 4. Urinary tract infection. Continue Rocephin. Follow up urine culture results. 5. Esophageal abnormality with a problem eating. We will consult GI, as PATIENT HAS ALLERGIES TO C ONTRAST, so she did not want to have an esophagram done, so maybe just an EGD. 6. Advance diet to full liquid. 7. Discussed with family further plan of care, we will follow. Dictated By: DAYNA ELLIOTT/MITCH Conf#: [id number] DID#: [id number] CC: DAYNA GOLDSTEIN MD;*EndCC*
[2018-11-17 20:24] VITALS: BP 108/83; PULSE 100; RESP 20
[2018-11-17] MEDS ORDERED: ATORVASTATIN 40 MG TAB PO SCH (21:00)
[2018-11-18 00:28] VITALS: BP 81/65; PULSE 126; RESP 20
--- NOTE | 2018-11-18 02:51 | CONS ---
DATE OF ADMISSION: 11/16/2018 DATE OF CONSULTATION: HISTORY OF PRESENT ILLNESS: The patient is a 63-year-old female with a history of CVA twice, hyperte nsion, dyslipidemia, placement of G-tube for dysphagia and subsequently to remove. Comes to the ER c omplaining of left flank pain and nausea and vomiting. In the ER, she was evaluated. The urine show ed gram-negative infection. Diagnosis of UTI was entertained. Patient had a CAT scan of the abdomen , pelvis and chest, which showed a thickening of the distal part of the esophagus, thickening of the antrum and there was some amount of gastroparesis, so GI consult was called in for EGD. The patient had a Xarelto given yesterday at 5:00. 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 PAST MEDICAL HISTORY: CVA, hypertension, atrial fibrillation. ALLERGIES: DYE. SOCIAL HISTORY: She is , 2 children. No alcohol, no smoking now. She is a former smoker. MEDICATIONS: 1. Xarelto. 2. Statin. 3. Lopressor. 4. Aldactone. FAMILY HISTORY: Unknown. PHYSICAL EXAMINATION GENERAL: Well-built, nourished, not in distress. VITAL SIGNS: Stable. HEENT: Unremarkable. NECK: Supple, no thyromegaly, no lymphadenopathy. CARDIOVASCULAR: No murmur, gallop or click. LUNGS: Clear. ABDOMEN: Benign. EXTREMITIES: No edema. CENTRAL NERVOUS SYSTEM: Grossly within normal limits. LABORATORY DATA: CAT scan reviewed. IMPRESSION: 1. Thickening of the distal part of the esophagus, rule out esophageal ulcer, rule out malignancy. 2. Thickening of the distal part of the stomach. 3. Gastroparesis based on the CAT scan finding. 4. Urinary tract infection. 5. Hypertension. 6. Cerebrovascular accident. 7. Atrial fibrillation. PLAN: To stop Xarelto. Will proceed with EGD and hopefully with the brushing and biopsy tomorrow in the afternoon, which will be more than 36 hours for the discontinuation of Xarelto. In the interim , continue present care. Dictated By: DEJON STARKEY/MITCH Conf#: [id number] DID#: [id number]
[2018-11-18 04:16] VITALS: BP 115/89; PULSE 110; RESP 20
[2018-11-18] MEDS: PANTOPRAZOLE (EC) 40 MG TAB PO SCH (05:20)
[2018-11-18 07:30] VITALS: BP 106/75; PULSE 68; RESP 19
[2018-11-18] MEDS: CEFTRIAXONE 1 GM/50 ML (PMX) 50 ML IVPB SCH (08:26)
[2018-11-18] MEDS: METOPROLOL 50 MG TAB PO SCH (08:27)
[2018-11-18] MEDS: POTASSIUM CHLORIDE (SR) 10 MEQ TAB PO ONE ×2 (08:30→10:21)
[2018-11-18] MEDS ORDERED: DIGOXIN 500 MCG INJ IV ONE (08:30)
--- NOTE | 2018-11-18 08:30 | CONS ---
Consult Date/Type/Reason Admit Date/Time Nov 16, 2018 at 09:50 Initial Consult Date 11/16/18 Type of Consultation: cv Requesting Provider: DAYNA GOLDSTEIN MD Date/Time of Note DATE: 11/18/18 TIME: 08:28 Subjective Interventional cardiology follow-up progress note Subjective: Case discussed with the staff. Telemetry was reviewed. Patient has remained in atrial fibrillation but heart rate is under fair control Patient denies any left-sided chest pain or pressure. no more Nausea vomiting Objective: General: no acute distress HEENT: NC/AT. pupils are equal. round. NECK: NO JVD. no stridor. CV: Irregularly irregular. systolic murmur; no gallop or rubs. PULM: no wheezing or rhonchi. GI: SOFT, NT, ND, no rebound or guarding Extremity: trace B/L LE edema. no clubbing. neuro: awake and alert, OX3. Psych: calm and pleasant rectal: deferred EKG was personally reviewed atrial fibrillation rapid ventricular response Echocardiogram was personally showed normal systolic function CT of the abdomen shows: 1. Moderately distended fluid-filled stomach with questioned thickening of the distal stomach. Consider upper GI or direct visualization. 2. Small to moderate hiatal hernia with retained fluid. 3. Diffuse decreased caliber of the transverse and descending colon which may reflect peristalsis. Findings may also reflect colitis in the appropriate clinical setting. 4. Interval removal of a percutaneous gastrostomy tube. 5. Stable sclerotic lesion in the left iliac bone at the sacroiliac joint level. Objective Vitals Vital Signs Date Temp Pulse Resp B/P (MAP) Pulse Ox O2 O2 Flow FiO2 Time Delivery Rate 11/18/18 98.1 68 19 106/75 98 Nasal 07:30 (85) Cannula 11/17/18 2.0 20:00 Intake and Output 11/17/18 11/17/18 11/18/18 1515:00 23:00 07:00 IntakeIntake Total 360 ml 100 ml 120 ml BalanceBalance 360 ml 100 ml 120 ml Results/Medications Result Diagram: 11/18/1828 11/18/18 0628 Results 24 hrs Laboratory Tests Test 11/18/18 06:28 White Blood Count 9.6 Red Blood Count 4.95 Hemoglobin 13.1 Hematocrit 41.5 Mean Corpuscular Volume 83.8 Mean Corpuscular Hemoglobin 26.5 L Mean Corpuscular Hemoglobin Concent 31.6 L Red Cell Distribution Width 16.2 H Platelet Count 279 Mean Platelet Volume 11.0 H Immature Granulocytes % 0.500 H Neutrophils % 68.7 Lymphocytes % 23.9 Monocytes % 5.4 Eosinophils % 1.1 Basophils % 0.4 Nucleated Red Blood Cells % 0.0 Immature Granulocytes # 0.050 H Neutrophils # 6.6 Lymphocytes # 2.3 Monocytes # 0.5 Eosinophils # 0.1 Basophils # 0.0 Nucleated Red Blood Cells # 0.0 Sodium Level 138 Potassium Level 3.4 L Chloride Level 107 Carbon Dioxide Level 25 Anion Gap 6 Blood Urea Nitrogen 17 Creatinine 0.95 Est Glomerular Filtrat Rate mL/min 59 L Glucose Level 107 Calcium Level 8.8 Phosphorus Level 2.9 Magnesium Level 2.1 Iron Level 24 L Total Iron Binding Capacity 298 Percent Iron Saturation 8 L Total Bilirubin 0.4 Direct Bilirubin 0.00 Indirect Bilirubin 0.4 Aspartate Amino Transf (AST/SGOT) 15 Alanine Aminotransferase (ALT/SGPT) 15 Alkaline Phosphatase 54 Total Protein 5.7 L Albumin 3.0 L Globulin 2.70 Albumin/Globulin Ratio 1.11 Vitamin B12 Level Pending Folate Pending Home Meds Reported Medications Rivaroxaban* (Xarelto*) 20 Mg Tablet, 20 MG PO WITH DINNER, TAB 11/16/18 Metoprolol Tartrate* (Lopressor*) 50 Mg Tab, 50 MG PO BID, #60 TAB 11/16/18 Atorvastatin Calcium* (Atorvastatin Calcium*) 20 Mg Tablet, 20 MG PO QHS, #30 TAB 11/16/18 Spironolactone* (Aldactone*) 25 Mg Tablet, 25 MG PO DAILY, #30 TAB 11/16/18 Discontinued Reported Medications [Xarelto Daily] No Conflict Check 07/06/18 Spironolactone* (Spironolactone*) 100 Mg Tablet, 100 MG PO DAILY, TAB 07/06/18 [Metoprolol] No Conflict Check 07/06/18 [Digoxin] No Conflict Check 07/06/18 Medications Current Medications IV Flush (NS 3 ml) 3 ml PER PROTOCOL IV ; Start 11/16/18 at 11:00 Lorazepam (Ativan) 0.5 mg Q8H PRN PO .ANXIETY; Start 11/16/18 at 11:00 Ondansetron HCl (Zofran Inj) 4 mg Q6H PRN IV NAUSEA/VOMITING Last administered on 11/16/18at 23:43; Admin Dose 4 MG; Start 11/16/18 at 11:00 Acetaminophen (Tylenol Tab) 650 mg Q6H PRN PO .PAIN 1-3 OR TEMP; Start 11/16/18 at 11:00 Acetaminophen/ Hydrocodone Bitart ([place] (5/325)) 1 tab Q6H PRN PO .PAIN 4-6 Last administered on 11/18/18at 00:26; Admin Dose 1 TAB; Start 11/16/18 at 11:00 Morphine Sulfate (morphine) 2 mg Q4H PRN IV .PAIN 7-10 Last administered on 11/16/18at 23:38; Admin Dose 2 MG; Start 11/16/18 at 11:00 Docusate Sodium (Colace) 100 mg Q12H PRN PO .CONSTIPATION; Start 11/16/18 at 11:00 Magnesium Hydroxide (Milk Of Mag) 30 ml DAILY PRN PO .CONSTIPATION; Start 11/16/18 at 11:00 Pantoprazole (Protonix Tab) 40 mg DAILY@06 PO Last administered on 11/18/18at 05:20; Admin Dose 40 MG; Start 11/17/18 at 06:00 Ceftriaxone Sodium 50 ml @ 100 mls/hr Q24H IVPB Last administered on 11/17/18at 08:35; Admin Dose 100 MLS/HR; Start 11/17/18 at 09:00 Metoprolol Tartrate (Lopressor) 50 mg BID PO Last administered on 11/17/18at 21:26; Admin Dose 50 MG; Start 11/16/18 at 21:00 Diltiazem HCl (Cardizem Iv) 5 mg Q1H PRN IV hr > 120; Start 11/16/18 at 12:00 Atorvastatin Calcium (Lipitor) 40 mg QHS PO Last administered on 11/17/18at 21:25; Admin Dose 40 MG; Start 11/17/18 at 21:00 Assessment/Plan Hospital Course (Demo Recall) 1. A. fib with RVR: Heart rate probably increased secondary to below: currently better controlled 2. Possible sepsis and UTI 3. History of hypertension 4. History of CVA x2 5. Dyslipidemia 6. Nausea vomiting dehydration Recommendations: Patient has been evaluated by GI. resume Xarelto once ok with GI Continue the p.o. beta-joelle. DIG IV X 1 NOW . replace K Cardizem IV as needed to control the heart rate Antibiotics management as per internal medicine. We will monitor closely and telemetry CONT lipitor to 40 mg to keep LDL level less than 70 given her history of CVA Thank you for his referral. We will continue to follow along with you MARY CASTILLO MD [facility] MARY CASTILLO MD Nov 18, 2018 08:30
[2018-11-18] MEDS ORDERED: RIVAROXABAN 20 MG TABLET PO SCH ×2 (09:00→17:55)
--- NOTE | 2018-11-18 10:20 | PN ---
DATE: 11/18/2018 ADDENDUM: In the overnight I received a call that the patient wants to be back on the Xarelto. Apparently Dr. Tran scheduled her for an EGD this morning and stopped the Xarelto, so EGD can be done and a possible biopsy if needed and there were some concerning findings on the CAT scan regarding her esophagus. The patient requested to be back on the Xarelto. I told her that this is for the procedure and I did not order that. I talked yesterday in detail with family members, also in the process to obtain old records from the outside hospital regarding workup that was done already. Again, patient is complaining of dysphagia to solids and there are definitely concerning findings on the CAT scan regarding her esophagus. I just came and talked to the patient that she appears to be upset. I told her that if she does not want the procedure, we can resume the Xarelto. I spoke with Dr. Tran. He is currently ready to proceed with the procedure, but again I spoke with the patient and she wants not to do the procedure and to take her Xarelto, so will proceed with the patient's wishes. In the meantime, we will try to obtain all records to see if any more information can be obtained. I left a message with family members as well over the phone to contact me, try to follow the patient's wishes. Urine culture also came back positive for Klebsiella pneumoniae, pansensitive as the patient is on appropriate antibiotics for urinary tract infection. The patient is definitely more alert this morning. We will continue to follow. Progress note to follow. Dictated By: DAYNA ELLIOTT/MITCH Conf#: [id number] DID#: [id number] MTDMary Jane
[2018-11-18] MEDS: ONDANSETRON 4 MG INJ IV PRN (10:46)
--- NOTE | 2018-11-18 11:38 | CONS ---
Assessment/Plan Assessment/Plan Assessment/Plan (Daily) IMPRESSION: 1. Thickening of the distal part of the esophagus, rule out esophageal ulcer, rule out malignancy. 2. Thickening of the distal part of the stomach. 3. Gastroparesis based on the CAT scan finding. 4. Urinary tract infection. 5. Hypertension. 6. Cerebrovascular accident. 7. Atrial fibrillation. Plan Patient declined EGD Consultation Date/Type/Reason Admit Date/Time Nov 16, 2018 at 09:50 Initial Consult Date 11/16/18 Requesting Provider: DAYNA GOLDSTEIN MD Date/Time of Note DATE: 11/18/18 TIME: 11:38 24 HR Interval Summary Constitutional: improved Exam/Review of Systems Exam Vitals Vital Signs Date Temp Pulse Resp B/P (MAP) Pulse Ox O2 O2 Flow FiO2 Time Delivery Rate 11/18/18 Nasal 2.0 08:15 Cannula 11/18/18 98.1 68 19 106/75 98 07:30 (85) Intake and Output 11/17/18 11/17/18 11/18/18 1515:00 23:00 07:00 IntakeIntake Total 360 ml 100 ml 120 ml BalanceBalance 360 ml 100 ml 120 ml Constitutional: alert, oriented, well developed Psych: no complaints, nl mood/affect Head: normocephalic, atraumatic Eyes: nl conjunctiva, EOMI, nl lids, nl sclera, PERRL ENMT: nl external ears & nose, nl lips & teeth, nl nasal mucosa & septum Neck: supple, non-tender Respiratory: clear to auscultation, normal air movement Cardiovascular: regular rate and rhythm, nl pulses Gastrointestinal: soft, nl liver, spleen, non-tender Musculoskeletal: nl extremities to inspection, nl gait and stance Extremities: normal pulses Neurological: [employer] II-XII intact, nl mental status, nl speech, nl strength Skin: nl turgor; No rash or lesions Lymph: nl lymph nodes Results Result Diagram: 11/18/1862711/18/18627 Results 24hrs Laboratory Tests Test 11/18/18 06:28 White Blood Count 9.6 Red Blood Count 4.95 Hemoglobin 13.1 Hematocrit 41.5 Mean Corpuscular Volume 83.8 Mean Corpuscular Hemoglobin 26.5 L Mean Corpuscular Hemoglobin Concent 31.6 L Red Cell Distribution Width 16.2 H Platelet Count 279 Mean Platelet Volume 11.0 H Immature Granulocytes % 0.500 H Neutrophils % 68.7 Lymphocytes % 23.9 Monocytes % 5.4 Eosinophils % 1.1 Basophils % 0.4 Nucleated Red Blood Cells % 0.0 Immature Granulocytes # 0.050 H Neutrophils # 6.6 Lymphocytes # 2.3 Monocytes # 0.5 Eosinophils # 0.1 Basophils # 0.0 Nucleated Red Blood Cells # 0.0 Sodium Level 138 Potassium Level 3.4 L Chloride Level 107 Carbon Dioxide Level 25 Anion Gap 6 Blood Urea Nitrogen 17 Creatinine 0.95 Est Glomerular Filtrat Rate mL/min 59 L Glucose Level 107 Calcium Level 8.8 Phosphorus Level 2.9 Magnesium Level 2.1 Iron Level 24 L Total Iron Binding Capacity 298 Percent Iron Saturation 8 L Total Bilirubin 0.4 Direct Bilirubin 0.00 Indirect Bilirubin 0.4 Aspartate Amino Transf (AST/SGOT) 15 Alanine Aminotransferase (ALT/SGPT) 15 Alkaline Phosphatase 54 Total Protein 5.7 L Albumin 3.0 L Globulin 2.70 Albumin/Globulin Ratio 1.11 Vitamin B12 Level 298 Folate 7.6 Medications Medication Current Medications IV Flush (NS 3 ml) 3 ml PER PROTOCOL IV ; Start 11/16/18 at 11:00 Lorazepam (Ativan) 0.5 mg Q8H PRN PO .ANXIETY; Start 11/16/18 at 11:00 Ondansetron HCl (Zofran Inj) 4 mg Q6H PRN IV NAUSEA/VOMITING Last administered on 11/18/18at 10:46; Admin Dose 4 MG; Start 11/16/18 at 11:00 Acetaminophen (Tylenol Tab) 650 mg Q6H PRN PO .PAIN 1-3 OR TEMP; Start 11/16/18 at 11:00 Acetaminophen/ Hydrocodone Bitart ([place] (5/325)) 1 tab Q6H PRN PO .PAIN 4-6 Last administered on 11/18/18at 00:26; Admin Dose 1 TAB; Start 11/16/18 at 11:00 Morphine Sulfate (morphine) 2 mg Q4H PRN IV .PAIN 7-10 Last administered on 11/16/18at 23:38; Admin Dose 2 MG; Start 11/16/18 at 11:00 Docusate Sodium (Colace) 100 mg Q12H PRN PO .CONSTIPATION; Start 11/16/18 at 11:00 Magnesium Hydroxide (Milk Of Mag) 30 ml DAILY PRN PO .CONSTIPATION; Start 11/16/18 at 11:00 Pantoprazole (Protonix Tab) 40 mg DAILY@06 PO Last administered on 11/18/18at 05:20; Admin Dose 40 MG; Start 11/17/18 at 06:00 Ceftriaxone Sodium 50 ml @ 100 mls/hr Q24H IVPB Last administered on 11/18/18at 08:26; Admin Dose 100 MLS/HR; Start 11/17/18 at 09:00 Metoprolol Tartrate (Lopressor) 50 mg BID PO Last administered on 11/18/18at 08:27; Admin Dose 50 MG; Start 11/16/18 at 21:00 Diltiazem HCl (Cardizem Iv) 5 mg Q1H PRN IV hr > 120; Start 11/16/18 at 12:00 Atorvastatin Calcium (Lipitor) 40 mg QHS PO Last administered on 11/17/18at 21:25; Admin Dose 40 MG; Start 11/17/18 at 21:00 Rivaroxaban (Xarelto) 20 mg WITH DINNER PO ; Start 11/18/18 at 17:55; Status UNDEJON DE LOS SANTOS MD Nov 18, 2018 11:38
[2018-11-18 12:08] VITALS: BP 138/98; PULSE 90; RESP 18
[2018-11-18 14:59] VITALS: BP 130/87; PULSE 91; RESP 20
--- NOTE | 2018-11-18 17:38 | PDOCDIS ---
Discharge Instructions CONDITION [id number] Patient Condition: [id number] Stable ACTIVITY: [id number] Activity Restrictions: Sprto0k Slowly Increase Activity FOLLOW UP/APPOINTMENTS Follow-up Plan follow up with PCP, see prescriptions DAYNA GOLDSTEIN MD Nov 18, 2018 17:38
--- NOTE | 2018-11-19 10:28 | DS ---
DATE OF ADMISSION: 11/16/2018 DATE OF DISCHARGE: 11/18/2018 REASON FOR ADMISSION: 1. Abdominal pain, urinary tract infection, rule out pyelonephritis. 2. Atrial fibrillation with rapid ventricular response. HOSPITAL COURSE: The patient is a 63-year-old female with a history of CVA x2, hypertensio n, dyslipidemia, dysphagia, atrial fibrillation, status post previous G-tube placement which was jessie prieto. Also, as we know now she has been admitted to multiple hospitals, [facility] in [place] where she underwent an upper endoscopy which showed large hiatal hernia, severe necrot ic-looking distal esophagus without inflammatory changes at the GE junction, status post biopsy. Thi s is most probably the source of the bleeding. G-tube in place without any G-tube ulceration. At th at time they recommended a PPI twice a day and reflux measures. Also, put the patient on Carafate. The patient may benefit from getting much bile in the stomach causing reflux. Ultimately the biopsy shows cardia type gastric mucosa showing moderate chronic inflammation with yellow hyperplasia GE-fun ction rejection biopsy. No interstitial metaplasia or dysplasia seen. No squamous epithelial presen t. This was 05/03/2018. Also, she underwent at [facility] a biopsy of her lung and it shows fragm ent of benign cartilaginous tissue. The finding raises the possibility of a pulmonary condyloma hama rtoma. During his stay because she presented with abdominal pain, more flank pain. She did have a UTI, but the urine culture showed Klebsiella pneumoniae and she was already on Rocephin. Antibiotics were sen sitive to it and she underwent multiple scans of the admission, it shows moderately distended fluid-f illed stomach with question thickening of the distal stomach into the upper GI tract visualization. Small to moderate hiatal hernia with retained fluid, diffuse decreased caliber of transverse and desc ending colon which may reflect peristalsis. The finding may also reflect colitis in the appropriate setting. Interval removal of G-tube. Stable sclerotic lesions in the left iliac bone and sarcoid li tianna joint level. A CAT scan also showed the findings which were concerning diffuse infiltration wal l thickening of 4.3 cm, length in the mid to distal esophagus. See report. Also, 3.7 mass grossly s table from 05/08/2018. So basically based on all that I consulted Dr. Caceres, also Dr. Tran, Dr. Caceres the pulmonologi st due to the pulmonary issue. Dr. Tran to undergo an EGD, but again I did get those results from the outside hospital, but I think probably she would have benefited from another followup EGD to laz tor healing and overall process in the distal esophagus. The patient unfortunately refused to stop t he Xarelto and did not want an EGD. The patient overall improved with antibiotics as her white count normalized from 13.5 to 9.6. Otherw ise, she was found to have mild iron deficiency anemia. Iron levels were low at 24. B12 was slightl y low at 298. Blood cultures were all negative. Patient to be discharged with the following medications: 1. Levaquin 5 mg daily. 2. Protonix 40 mg daily. 3. Atorvastatin 20 mg at bedtime. 4. Metoprolol titrate 50 b.i.d. 5. Xarelto 20 daily with dinner. The patient definitely has to follow up with PCP. If she has more GI issues I think she needs to be scoped again with an EGD. FINAL DIAGNOSES: 1. Abdominal pain. 2. Rule out pyelonephritis. 3. Urinary tract infection. 4. Distal esophageal inflammation, rule out malignancy, refused esophagogastroduodenoscopy. 5. Atrial fibrillation. 6. History of cerebrovascular accident. 7. Dyslipidemia. 8. Lung mass, likely benign. See above discussion. I spoke with her PCP, Dr. Gregg Mcgarry about overall the patient's condition and overall plan of care. The patient to be discharged home as I spoke during the stay with her daughter. Any mejia e in condition to call 911 or go to nearest emergency department. Advance diet as tolerated but in the meantime full liquid diet. May benefit from Ensure to maximize nutritional support. Dictated By: DAYNA ELLIOTT/MITCH Conf#: [id number] DID#: [id number]
== END 2018-11-18 18:30 | disposition home or self-care (01) | DRG 872 ==
LOC: E/R 07:29 → TEL 09:50
PROVIDERS: ADMIT Internal Medicine; ATTEND Internal Medicine
DX: A41.9 Sepsis, unspecified organism (principal); N17.9 Acute kidney failure, unspecified; N39.0 Urinary tract infection, site not specified; I48.91 Unspecified atrial fibrillation; E78.5 Hyperlipidemia, unspecified; I10 Essential (primary) hypertension; I25.10 Atherosclerotic heart disease of native coronary artery without angina pectoris; Z79.01 Long term (current) use of anticoagulants; Z86.73 Personal history of transient ischemic attack (TIA), and cerebral infarction without residual deficits
CPT/HCPCS: 36415; 71045; 71250; 74176; 76775; 80053; 80061; 81001; 82378; 82607; 82746; 83036; 83540; 83605; 83735; 84100; 84439; 84443; 84484; 85025; 85610; 85730; 87086; 93005; 93306; 96374; 96375; J0696; J2270; J2405; J3475; J7030